=== PATIENT | female | born 1985 | race Caucasian/White ===

== ENCOUNTER → 2018-06-29 09:54 | Outpatient (CLI) | payer MEDICAID, SELFPAY ==
[2018-06-29 11:19] LABS: Glucose GTT- Fasting 82 mg/dL (74-106)
[2018-06-29 11:26] LABS: AST(SGOT) 21 U/L (15-37); Alanine Aminotransfer ALT/SGPT 34 U/L (13-56); Alkaline Phosphatase 75 U/L (45-117); Bilirubin, Direct 0.14 mg/dL (0.00-0.30); Estradiol 29.6 pg/mL; Follicle Stimulating Hormone 5.6 mIU/mL; Globulin 3.6 g/dL (2.2-4.2); Prolactin 4.4 ng/mL; Protein, Total 7.6 g/dL (6.4-8.2)
[2018-06-29 11:30] LABS: Insulin 75GTT - Fasting 19.8 mU/L (2.6-37.6)
[2018-06-29 12:26] LABS: Glucose GTT- 1 Hour 147 mg/dL (120-170)
[2018-06-29 12:26] LABS: Glucose GTT-30 minutes 98 mg/dL (110-170)
[2018-06-29 12:40] LABS: Insulin 75GTT - 60 min 254.7 mU/L (Not Estab)
[2018-06-29 13:17] LABS: Vitamin D,25 Hydroxy 41.4 ng/mL (29.95-100.01)
[2018-06-29 14:00] LABS: Glucose GTT- 2 Hour 113 mg/dL (70-120)
[2018-06-29 14:59] LABS: Insulin 75GTT - 120 min 319.4 mU/L (Not Estab.)
[2018-06-30 07:07] LABS: DHEA Sulfate 470.6 ug/dL (84.8-378.0)
[2018-06-30 09:54] LABS: Free T3 2.9 pg/mL (2.18-3.98); T4 Free Direct 0.89 ng/dL (0.76-1.46); Thyroid Stim Hormone (TSH) 2.01 uIU/mL (0.358-3.74)
[2018-06-30 11:04] LABS: Sex Hormone-binding Globulin 41.6 nmol/L (24.6-122.0)
[2018-07-02 17:19] LABS: 17-Hydroxyprogesterone 25 ng/dL (.)
== END ==
PROVIDERS: Referring Provider Obstetrics & Gynecology; Visit Provider Obstetrics & Gynecology
DX: N92.6 Irregular menstruation, unspecified (principal); L68.0 Hirsutism
CPT/HCPCS: 36415; 80076; 82306; 82533; 82627; 82670; 82951; 82952; 83001; 83498; 83525; 84146; 84270; 84403; 84439; 84443; 84481; 82626

== ENCOUNTER 2018-12-13 05:33 | Emergency (ER) | payer MEDICAID, SELFPAY ==
[2018-12-13 05:35] VITALS: BP 105/66; PULSE 96; RESP 22; TEMP 36.6; O2SAT 97; BMI 34.4
[2018-12-13 05:42] VITALS: PULSE 96; RESP 21; O2SAT 97
--- NOTE | 2018-12-13 05:47 | EKG12_ITS ---
Test Reason : Blood Pressure : / mmHG Vent. Rate : 090 BPM Atrial Rate : 090 BPM P-R Int : 132 ms QRS Dur : 088 ms QT Int : 376 ms P-R-T Axes : 037 052 021 degrees QTc Int : 459 ms Normal sinus rhythm Nonspecific ST abnormality Abnormal ECG Confirmed by FARA WHEAT, MARIO ([id number]), website/blog editor PHILIPPE MARRERO ([id number]) on 12/15/2018 2:14:08 PM Referred By: JASON Confirmed By:MARIO CHAUDHARI MD
--- NOTE | 2018-12-13 05:47 | ED.VIS.GEN ---
History of Present Illness Chief Complaint: Syncope Informant: Patient Narrative: Stated she is been feeling weak and fatigued with febrile-like symptoms since yesterday. She also had some muscle aches. She got up this morning to go to the bathroom. She got lightheaded and passed out. She did strike her right cheek on the toilet when she fell down. There is no seizure activity. She laid there for a moment and her helped her up. Currently she states she feels fatigued and weak. She has never had syncope before. No history of cardiac disease. She states she has been drinking a lot of fluids and does not feel dehydrated. She did not hit her head per patient. Current severity is resolved. Denies any chest pain or shortness of breath or other symptoms. Past Medical History - Allergies and Home Meds Allergies/Adverse Reactions: Allergies acetaminophen [From Vicodin] Adverse Reaction (Verified 12/13/18 05:43) Chest tightness hydrocodone [From Vicodin] Adverse Reaction (Verified 12/13/18 05:43) Chest tightness Primary Care Physician: Care Physician,No Primary [Primary Care Provider] - Prior records reviewed: Yes Past Medical History: None Surgical History: noncontributory Smoking Status: Former smoker Alcohol: None Drugs: None Review of Systems General: Reports: Malaise. Denies: Chills, Fever, Sweats Eyes: Denies: Visual changes - bilaterally, Diplopia ENT: Denies: Rhinorrhea, Sore throat Cardiovascular: Denies: Chest pain, Palpitations Respiratory: Denies: Dyspnea, Cough, Dyspnea on exertion Gastrointestinal: Denies: Abdominal pain, Nausea, Vomiting, Diarrhea, Melena, Hematochezia Genitourinary: Denies: Dysuria, Hematuria, Frequency Musculoskeletal: Denies: Back pain, Extremity Pain Skin: Denies: Rash, Wounds Neurological: Reports: Weakness. Denies: Headache, Numbness Physical Exam Vital Signs/Narrative: Vital Signs Temp Pulse Resp BP Pulse Ox 12/13/18 05:42 96 21 H 97 12/13/18 05:35 98 F 96 22 H 105/66 97 General: Well nourished, Well developed, No Acute Distress Head: Normocephalic, Atraumatic Eyes: Perrl, EOMI ENT: Moist mucous membranes, No rhinorrhea, - - Visual exam normal with no evidence of trauma to her cheek bones Neck: Supple, Nontender Cardiovascular: Regular rate, Regular rhythm, No murmurs Respiratory: No distress, CTA bilaterally, Chest nontender Abdomen: Soft, Nontender, Nondistended, Normal bowel sounds Back: Nontender, Normal Inspection Extremities: Nontender, No edema Skin: Normal color, No rash Neurological: Alert, Oriented x3, Cranial nerves II-XII grossly intact, Normal Strength, Normal Sensation Psychological: Normal affect, Normal Mood Diagnostic/Tx/Re-eval Laboratory Tests 12/13/18 12/13/18 Range/Units 05:55 05:55 WBC 7.4 (4.4-11.0) K/mm3 RBC 4.86 (4.2-5.4) M/mm3 Hgb 14.0 (12.0-15.0) g/dL Hct 42.8 (37-47) % MCV 88.1 (81-99) fL MCH 28.8 (27.0-32.0) pg MCHC 32.7 (32-36) g/dL RDW Std Deviation 43.8 (35.1-43.9) fl RDW Coeff of Steve 13.5 (11.6-14.6) % Plt Count 170 (150-450) K/mm3 MPV 10.7 (6.2-12.0) fl Immature Gran % (Auto) 0.300 (0.0-0.9) % Neut % (Auto) 79.0 H (47-70) % Lymph % (Auto) 11.1 L (19-41) % Coleman % (Auto) 9.2 (0-10) % Eos % (Auto) 0.1 (0-5) % Baso % (Auto) 0.3 (0-1) % Absolute Neuts (auto) 5.8 (2.0-7.7) X10^3/uL Absolute Lymphs (auto) 0.82 L (0.83-4.51) X10^3/uL Nucleated RBC % 0 (0-5) % Sodium 139 (136-145) mmol/L Potassium 3.2 L (3.5-5.1) mmol/L Chloride 105 (98-107) mmol/L Carbon Dioxide 26.0 (21.0-32.0) mmol/L Anion Gap 8 (5-15) BUN 9 (7-18) mg/dL Creatinine 0.86 (0.55-1.02) mg/dL Estim Creat Clear Calc 92.17 ml/min Est GFR (MDRD) Af Amer 98 (>60) mL/min Est GFR (MDRD) Non-Af 81 (>60) mL/min BUN/Creatinine Ratio 10.4 (10-20) RATIO Glucose 97 (74-106) mg/dL Calcium 9.0 (8.5-10.1) mg/dL - Medical Decision Making She had episode of syncope. Likely related to orthostasis versus vasovagal. EKG and lab work obtained EKG shows sinus rhythm at a rate of 90 with no acute ischemia or arrhythmia. T wave inversion inferiorly 3 only. Nonspecific in nature. Lab work shows a mildly low potassium 3.2. Otherwise CBC and electrolytes unremarkable. Patient has normal vital signs resting comfortably. I feel this is orthostatic or vasovagal in nature likely secondary to her not feeling well. I feel she can be discharged to follow-up as an outpatient. I do not feel she needs acute intervention at this time. I do not feel she needs further imaging. She will return if she worsens ED Disposition - Plan for ED Patient: Diagnosis: Syncope Instructions: SYNCOPE, Vasovagal Referrals: Flynn Goldman MD [STAFF PHYSICIAN] -
--- NOTE | 2018-12-13 05:50 | ED.RN ---
NO OLD EKGS
[2018-12-13 06:02] LABS: Absolute Lymphocyte Count 0.82 X10^3/uL (0.83-4.51); Absolute Neutrophil Count 5.8 X10^3/uL (2.0-7.7); Basophil# 0.02 X10^3/uL; Basophil% 0.3 % (0-1); Eosinophil# 0.01 X10^3/uL; Eosinophils% 0.1 % (0-5); Hematocrit 42.8 % (37-47); Lymphocyte # 0.82 X10^3/ul (4.0); Lymphocyte % 11.1 % (19-41); Mean Corp Hgb Conc 32.7 g/dL (32-36); Mean Corpuscular Hgb 28.8 pg (27.0-32.0); Mean Corpuscular Volume 88.1 fL (81-99); Mean Platelet Vol. 10.7 fl (6.2-12.0); Monocyte# 0.68 X10^3/uL; Monocyte% 9.2 % (0-10); NRBC Flagged by Analyzer 0 % (0-5); Neutrophil # 5.83 X10^3/uL (2.7-7.7); Platelet Count 170 K/mm3 (150-450); RBC Distribution Width CV 13.5 % (11.6-14.6); RBC Distribution Width SD 43.8 fl (35.1-43.9); Red Blood Count 4.86 M/mm3 (4.2-5.4); White Blood Count 7.4 K/mm3 (4.4-11.0)
[2018-12-13 06:14] LABS: Anion Gap 8 (5-15); BUN 9 mg/dL (7-18); BUN/Creat Ratio 10.4 RATIO (10-20); Chloride 105 mmol/L (98-107); Creatinine, Serum 0.86 mg/dL (0.55-1.02); EST Glomerular Filtration Rate 81 mL/min (>60); Est Glom Filt Rate - Afr Amer 98 mL/min (>60); Estimated Creatinine Clearance 92.17 ml/min; Glucose 97 mg/dL (74-106); Potassium 3.2 mmol/L (3.5-5.1); Sodium Level 139 mmol/L (136-145)
[2018-12-13 06:33] VITALS: BP 112/78; PULSE 91; RESP 19; O2SAT 98
== END 2018-12-13 06:43 | disposition home or self-care (01) ==
PROVIDERS: Emergency Provider Emergency Medicine
DX: R55 Syncope and collapse (principal); Z87.891 Personal history of nicotine dependence
CPT/HCPCS: 80048; 85025; 93005; 99283; A4216

== ENCOUNTER → 2019-05-09 10:43 | Outpatient (CLI) | payer MEDICAID, SELFPAY ==
--- NOTE | 2019-05-09 10:47 | US_ITS ---
STUDY: ABDOMINAL ULTRASOUND - RIGHT UPPER QUADRANT REASON FOR VISIT: Female, 33 years old r/o adrenal mass -- hair loss, fatigue -- insurance would not approve CT w/o US first -- exam ok per Dr Cespedes TECHNIQUE: Ultrasound evaluation of the right upper quadrant was performed with real-time and static holden-scale imaging. TECHNICAL QUALITY: Adequate. COMPARISON: None. FINDINGS: The adrenal glands were not visualized. Right Kidney: Normal size of the right kidney. The right kidney measures 10.5 cm x 5.7 cm x 4.8 cm. Normal renal cortex. The right cortex measures 1.4 cm. There is no demonstrated renal mass or cyst. There is no right hydronephrosis. US/Abdomen Limited IMPRESSION: Normal right upper renal ultrasound examination. The adrenal glands were not visualized. Electronically Signed: Bruno Simpson, at 15:47 EST , Service support ,
== END ==
PROVIDERS: Referring Provider Obstetrics & Gynecology; Visit Provider Obstetrics & Gynecology
DX: E28.1 Androgen excess (principal)
CPT/HCPCS: 76705

== ENCOUNTER → 2019-05-12 13:52 | Outpatient (CLI) | payer MEDICAID, SELFPAY ==
--- NOTE | 2019-05-12 14:07 | CT_ITS ---
STUDY: CT ABDOMEN WITHOUT CONTRAST REASON FOR EXAM: Female, 33 years old. Androgen excess, evaluate for adrenal tumor. RADIATION DOSAGE (If Supplied By Facility): CTDIvol = ( 10.87 ) mGy, DLP = ( 423.48 ) mGycm TECHNIQUE: Transaxial images were obtained without intravenous contrast, and oral contrast. Sagittal and coronal images were reconstructed. Individualized dose optimization techniques were used for this CT. COMPARISON: None. FINDINGS: The visualized lung bases are unremarkable. The visualized portions of the heart are within normal limits. Normal liver. Normal gallbladder and extrahepatic biliary system. Normal spleen. Normal pancreas. Normal bilateral adrenal glands. Normal right kidney. Normal left kidney. Normal visualized stomach. Normal small intestine. Normal colon. The appendix is visualized and appears normal. Normal abdominal aorta. Normal inferior vena cava. Normal retroperitoneum. Normal abdominal wall. Normal osseous structures. CT/Abdomen without IV Contrast IMPRESSION: Normal unenhanced CT of the abdomen. No adrenal lesion is identified. Electronically Signed: Donell Delatorre, at 16:31 EST Tel , Service support ,
== END ==
PROVIDERS: Referring Provider Obstetrics & Gynecology; Visit Provider Obstetrics & Gynecology
DX: E28.1 Androgen excess (principal)
CPT/HCPCS: 74150